=== PATIENT | male | born 1965 | race Caucasian/White ===

== ENCOUNTER 2024-01-09 07:36 | Day surgery (SDC) | payer OTHER ==
[~2024-01-09] VITALS: Ht 177.8 cm; Wt 82.6 kg
[2024-01-09] MEDS ORDERED: fentaNYL CITRATE/PF 100 MCG/2 ML AMP ONE (08:40)
[2024-01-09] MEDS ORDERED: MIDAZOLAM HCL 5 MG/5 ML VIAL ONE (08:40)
[2024-01-09] MEDS ORDERED: LIDOCAINE MPF 2% 20 MG/1 ML, 5 ML VIAL INH ONE (09:00)
[2024-01-09 09:53] VITALS: O2SAT 100
[2024-01-09] MEDS: fentaNYL CITRATE/PF 100 MCG/2 ML AMP IVP ONE (10:05)
[2024-01-09 14:07] VITALS: BP_SYST 135; PULSE 73; RESP 23
[2024-01-09] MEDS ORDERED: ONDANSETRON HCL 4 MG/2 ML VIAL ONE (15:15)
== END 2024-01-09 12:30 | disposition home or self-care (01) ==
LOC: SMU 07:36 → SDS 07:36
PROVIDERS: ATTEND Internal Medicine
DX: M50.13 Cervical disc disorder with radiculopathy, cervicothoracic region (principal); M48.02 Spinal stenosis, cervical region; Z88.8 Allergy status to other drugs, medicaments and biological substances; Z87.891 Personal history of nicotine dependence; Z98.84 Bariatric surgery status; Z98.890 Other specified postprocedural states
CPT/HCPCS: 62321; J2250; J3010; Q9967; J1010; 76000; J1030; J2405